=== PATIENT | male | born 1990 | race Caucasian/White ===

== ENCOUNTER 2019-04-09 10:58 | Emergency (ER) | payer SELFPAY ==
[~2019-04-09] VITALS: Ht 177.8 cm; Wt 113.6 kg
[~2019-04-09 10:58] MED LIST: DIVA500T52 PO; LURA20TA PO; QUET400T PO; TRAZ-257 PO
[2019-04-09] MEDS ORDERED: ZIPR40CA2 PO (11:02)
[2019-04-09] MEDS ORDERED: BUSP5TAB20 PO (11:02)
[2019-04-09 13:16] VITALS: BP 137/79
== END 2019-04-09 13:26 | disposition home or self-care (01) ==
LOC: EMS 10:59
DX: J20.9 Acute bronchitis, unspecified (principal); F17.210 Nicotine dependence, cigarettes, uncomplicated; F41.9 Anxiety disorder, unspecified; F31.9 Bipolar disorder, unspecified; F19.90 Other psychoactive substance use, unspecified, uncomplicated; Z88.6 Allergy status to analgesic agent
CPT/HCPCS: 99406